=== PATIENT | female | born 1930 | race Caucasian/White ===

== ENCOUNTER 2017-09-29 12:21 | Inpatient (IN) | payer OTHER ==
[~2017-09-29] VITALS: Ht 154.9 cm; Wt 68.0 kg
[~2017-09-29 12:21] MED LIST: ALLO100T PO; ATEN-41 PO; ATOR10TA68 PO; MYCOLOG15 TP; NYST15PO2 TP; TRIA1CAP53 PO; WARF5TAB2 PO
[2017-09-29 12:42] VITALS: BP_SYST 130
[2017-09-29 13:13] LABS: BILIRUBIN,URINE NEGATIVE (NEGATIVE); BLOOD, URINE 3+ (NEGATIVE); CLARITY/URINE CLEAR (CLEAR); COLOR,URINE YELLOW (YELLOW); GLUCOSE,URINE NEGATIVE (NEGATIVE); KETONES,URINE NEGATIVE (NEGATIVE); LEUKOCYTE ESTERASE ,URINE NEGATIVE (NEGATIVE); NITRITE, URINE NEGATIVE (NEGATIVE); PH,URINE 5.5 (5.0-8.0); PROTEIN URINE 2+ (NEGATIVE); UROBILINOGEN,URINE 0.2 (0.2-1.0)
[2017-09-29 13:32] LABS: HEMATOCRIT 46.5 % (36-48); HEMOGLOBIN 14.9 g/dL (12.0-16.0); LYMPHOCYTES % (AUTO) 11.8 % (20.5-51.5); MEAN CORPUSCULAR HEMOGLOBIN 30 pg (27-31); MEAN CORPUSCULAR HGB CONC 32 % (32-36); MEAN CORPUSCULAR VOLUME 93 fL (79.0-98.0); MONOCYTES # (AUTO) 1.3 K/uL (0.0-1.0); MONOCYTES % (AUTO) 7.8 % (1.7-9.3); NEUTROPHILS # (AUTO) 13.1 K/uL (1.8-7.7); NEUTROPHILS % (AUTO) 77.9 % (40.0-70.0); PLATELET COUNT (AUTO) 166 K/uL (130-430); RED BLOOD CELL COUNT(AUTO) 4.98 MIL/uL (4.2-6.2); RED CELL DISTRIBUTION WIDTH 15.3 % (9.0-15.0); WHITE BLOOD COUNT (AUTO) 16.8 K/uL (4.8-10.8)
[2017-09-29 13:44] LABS: INR 1.3 (0.8-1.2); PROTHROMBIN TIME 12.9 SECS (9.5-12.5)
[2017-09-29 13:46] LABS: ANION GAP 7 (5-15); CALCIUM 9.1 mg/dL (8.4-11.0); CHLORIDE 111 mmol/L (98-107); CREATININE 1.39 mg/dL (0.55-1.30); GLUCOSE 103 mg/dL (70-99); POTASSIUM 4.7 mmol/L (3.5-5.1); SODIUM SERUM 144 mmol/L (136-145); UREA NITROGEN, BLOOD 40 mg/dL (8-21)
[2017-09-29 13:49] LABS: BASOPHILS # (AUTO) 0.1 K/uL (0.0-0.2); BASOPHILS % (AUTO) 0.7 % (0.0-2.0); EOSINOPHILS # (AUTO) 0.3 K/uL (0.0-0.4); EOSINOPHILS % (AUTO) 1.8 % (0.0-4.0)
[2017-09-29 13:50] LABS: ALANINE AMINOTRANSFERASE 34 U/L (12-78); ALBUMIN 3.2 g/dL (3.4-4.8); ASPARTATE AMINOTRANSFERASE 39 U/L (10-37)
[2017-09-29 13:59] LABS: BACTERIA,URINE FEW /HPF (None Seen); MUCUS,URINE None Seen /LPF (None Seen); RBC,URINE 0-3 /HPF (0-3); WBC,URINE 0-3 /HPF (0-3)
[2017-09-29] MEDS ORDERED: VANCOMYCIN HCL 1,000 MG in D5W 250 ML IV ONE (14:15)
[2017-09-29] MEDS ORDERED: VANCOMYCIN HCL 1000 MG/VIAL IV ONE (14:21)
[2017-09-29] MEDS ORDERED: IPRATROPIUM/ALBUTEROL SULFATE 3 ML AMPUL.NEB INH PRN (14:45)
[2017-09-29] MEDS ORDERED: ACETAMINOPHEN 325 MG TABLET PO PRN (14:45)
[2017-09-29 16:09] VITALS: BP_SYST 108
[2017-09-29 17:08] VITALS: BP_SYST 108
[2017-09-29] MEDS: WARFARIN SODIUM 5 MG TABLET PO SCH (18:59)
[2017-09-29 20:00] VITALS: BP_SYST 118
[2017-09-29] MEDS: CLOTRIMAZOLE 1% TOPICAL CREAM 15 GM TP SCH (21:00)
[2017-09-29] MEDS ORDERED: ZOLPIDEM TARTRATE 5 MG TABLET PO PRN (21:45)
[2017-09-30 00:51] VITALS: BP_SYST 117
[2017-09-30 08:00] VITALS: BP_SYST 134
[2017-09-30 08:35] LABS: INR 1.4 (0.8-1.2); PROTHROMBIN TIME 13.9 SECS (9.5-12.5)
[2017-09-30] MEDS: CLOTRIMAZOLE 1% TOPICAL CREAM 15 GM TP SCH ×2 (08:35→22:11)
[2017-09-30] MEDS ORDERED: FUROSEMIDE 40 MG/4 ML VIAL IVP ONE (10:00)
[2017-09-30] MEDS ORDERED: ENOXAPARIN SODIUM 40 MG/0.4 ML SYRINGE SUBCUT ONE (10:30)
[2017-09-30 12:42] VITALS: BP_SYST 139
[2017-09-30 16:00] VITALS: BP_SYST 122
[2017-09-30 16:14] VITALS: BP_SYST 122
[2017-09-30] MEDS: WARFARIN SODIUM 5 MG TABLET PO SCH (17:51)
[2017-09-30 20:00] VITALS: BP_SYST 134
[2017-09-30] MEDS: FUROSEMIDE 40 MG/4 ML VIAL IVP SCH (22:09)
[2017-10-01 00:31] VITALS: BP_SYST 129
[2017-10-01 07:02] LABS: BASOPHILS # (AUTO) 0.1 K/uL (0.0-0.2); BASOPHILS % (AUTO) 0.7 % (0.0-2.0); EOSINOPHILS # (AUTO) 0.2 K/uL (0.0-0.4); EOSINOPHILS % (AUTO) 1.7 % (0.0-4.0); HEMATOCRIT 45.7 % (36-48); HEMOGLOBIN 14.4 g/dL (12.0-16.0); LYMPHOCYTES # (AUTO) 1.4 K/uL (1.0-5.5); LYMPHOCYTES % (AUTO) 12.7 % (20.5-51.5); MEAN CORPUSCULAR HEMOGLOBIN 29 pg (27-31); MEAN CORPUSCULAR HGB CONC 32 % (32-36); MEAN CORPUSCULAR VOLUME 93 fL (79.0-98.0); MONOCYTES % (AUTO) 9.1 % (1.7-9.3); NEUTROPHILS # (AUTO) 8.3 K/uL (1.8-7.7); NEUTROPHILS % (AUTO) 75.8 % (40.0-70.0); PLATELET COUNT (AUTO) 153 K/uL (130-430); RED BLOOD CELL COUNT(AUTO) 4.93 MIL/uL (4.2-6.2); RED CELL DISTRIBUTION WIDTH 15.3 % (9.0-15.0)
[2017-10-01 07:15] LABS: ANION GAP 4 (5-15); CALCIUM 8.6 mg/dL (8.4-11.0); CHLORIDE 106 mmol/L (98-107); CREATININE 1.42 mg/dL (0.55-1.30); GLUCOSE 102 mg/dL (70-99); POTASSIUM 3.2 mmol/L (3.5-5.1); SODIUM SERUM 141 mmol/L (136-145); UREA NITROGEN, BLOOD 40 mg/dL (8-21)
[2017-10-01 08:00] VITALS: BP_SYST 126
[2017-10-01] MEDS: ENOXAPARIN SODIUM 40 MG/0.4 ML SYRINGE SUBCUT SCH (10:57)
[2017-10-01] MEDS: CLOTRIMAZOLE 1% TOPICAL CREAM 15 GM TP SCH ×2 (10:57→21:53)
[2017-10-01] MEDS: FUROSEMIDE 40 MG/4 ML VIAL IVP SCH ×2 (11:00→21:51)
[2017-10-01 12:22] VITALS: BP_SYST 138
[2017-10-01] MEDS ORDERED: POTASSIUM CHLORIDE 20 MEQ TAB.PRT.SR PO ONE (13:45)
[2017-10-01 20:00] VITALS: BP_SYST 119
[2017-10-01] MEDS: POTASSIUM CHLORIDE 20 MEQ TAB.PRT.SR PO SCH (21:51)
[2017-10-02 00:06] VITALS: BP_SYST 135
[2017-10-02 06:40] LABS: ANION GAP 3 (5-15); CALCIUM 8.2 mg/dL (8.4-11.0); CHLORIDE 108 mmol/L (98-107); CREATININE 1.27 mg/dL (0.55-1.30); GLUCOSE 108 mg/dL (70-99); POTASSIUM 3.1 mmol/L (3.5-5.1); SODIUM SERUM 144 mmol/L (136-145); UREA NITROGEN, BLOOD 36 mg/dL (8-21)
[2017-10-02 06:49] LABS: BASOPHILS % (AUTO) 0.3 % (0.0-2.0); EOSINOPHILS # (AUTO) 0.2 K/uL (0.0-0.4); EOSINOPHILS % (AUTO) 1.7 % (0.0-4.0); HEMOGLOBIN 14.2 g/dL (12.0-16.0); LYMPHOCYTES # (AUTO) 1.6 K/uL (1.0-5.5); LYMPHOCYTES % (AUTO) 14.5 % (20.5-51.5); MEAN CORPUSCULAR HEMOGLOBIN 31 pg (27-31); MEAN CORPUSCULAR HGB CONC 33 % (32-36); MEAN CORPUSCULAR VOLUME 93 fL (79.0-98.0); MONOCYTES # (AUTO) 1.4 K/uL (0.0-1.0); MONOCYTES % (AUTO) 12.6 % (1.7-9.3); NEUTROPHILS # (AUTO) 7.6 K/uL (1.8-7.7); NEUTROPHILS % (AUTO) 70.9 % (40.0-70.0); PLATELET COUNT (AUTO) 151 K/uL (130-430); RED BLOOD CELL COUNT(AUTO) 4.65 MIL/uL (4.2-6.2); RED CELL DISTRIBUTION WIDTH 15.2 % (9.0-15.0); WHITE BLOOD COUNT (AUTO) 10.8 K/uL (4.8-10.8)
[2017-10-02 08:23] LABS: PROTHROMBIN TIME 46.5 SECS (9.5-12.5)
[2017-10-02 08:26] VITALS: BP_SYST 111
[2017-10-02 08:26] LABS: INR 4.5 (0.8-1.2)
[2017-10-02] MEDS: POTASSIUM CHLORIDE 20 MEQ TAB.PRT.SR PO SCH (10:00)
[2017-10-02] MEDS: CLOTRIMAZOLE 1% TOPICAL CREAM 15 GM TP SCH (10:01)
[2017-10-02] MEDS: FUROSEMIDE 40 MG/4 ML VIAL IVP SCH (10:01)
[2017-10-02] MEDS: ENOXAPARIN SODIUM 40 MG/0.4 ML SYRINGE SUBCUT SCH (10:01)
[2017-10-02] MEDS ORDERED: POTA20TA83 PO (11:18)
[2017-10-02] MEDS ORDERED: LEVO500T20 PO (11:18)
[2017-10-02] MEDS ORDERED: FURO10VI27 IVP (11:18)
[2017-10-02] MEDS ORDERED: IPRA3AMP9 INH (11:18)
[2017-10-02] MEDS ORDERED: CLOT15CR10 TP (11:18)
[2017-10-02] MEDS ORDERED: LOVI40 SUBCUT (11:18)
[2017-10-02] MEDS ORDERED: ACET325T53 PO (11:18)
[2017-10-02 11:58] VITALS: BP_SYST 122
[2017-10-02 13:39] VITALS: BP_SYST 122
[2017-10-02 15:11] VITALS: BP_SYST 125
== END 2017-10-02 15:55 | DRG 291 ==
LOC: SED 12:21 → SMU 14:59
PROVIDERS: ADMIT Internal Medicine; ATTEND Internal Medicine
DX: I13.0 Hypertensive heart and chronic kidney disease with heart failure and stage 1 through stage 4 chronic kidney disease, or unspecified chronic kidney disease (principal); I50.33 Acute on chronic diastolic (congestive) heart failure; J18.9 Pneumonia, unspecified organism; D68.9 Coagulation defect, unspecified; I27.20 Pulmonary hypertension, unspecified; Z95.1 Presence of aortocoronary bypass graft; Z79.01 Long term (current) use of anticoagulants; E78.5 Hyperlipidemia, unspecified; N18.9 Chronic kidney disease, unspecified; E66.9 Obesity, unspecified; D72.829 Elevated white blood cell count, unspecified; I25.10 Atherosclerotic heart disease of native coronary artery without angina pectoris; Z87.891 Personal history of nicotine dependence; Z91.81 History of falling; Z95.0 Presence of cardiac pacemaker; Z88.8 Allergy status to other drugs, medicaments and biological substances; Z79.899 Other long term (current) drug therapy; Z68.28 Body mass index [BMI] 28.0-28.9, adult
CPT/HCPCS: 36415; 70450-TC; 71045; 80048; 80053; 81000-TC; 83605; 83880; 84484; 85025; 85610-TC; 85730-TC; 87040-TC; 93005; 93306; 96365; 97116-GP; 99285; J1650; J1940; J1956; J3370; J7060